=== PATIENT | male | born 1990 | race African-American/Black ===

== ENCOUNTER 2022-07-26 15:26 | Emergency (ER) | payer OTHER ==
[~2022-07-26] VITALS: Ht 180.3 cm; Wt 76.2 kg
[2022-07-26 15:49] VITALS: BP 140/90
--- NOTE | 2022-07-26 16:57 | NUR ---
Patient discharged to home in stable condition. Written and verbal after care instructions given. Patient verbalizes understanding of instruction.
== END 2022-07-26 16:58 | disposition home or self-care (01) ==
LOC: ER 15:46
DX: S02.2XXA Fracture of nasal bones, initial encounter for closed fracture (principal); Z60.2 Problems related to living alone; W50.0XXA Accidental hit or strike by another person, initial encounter; Y93.67 Activity, basketball; Y92.89 Other specified places as the place of occurrence of the external cause; Y99.8 Other external cause status
CPT/HCPCS: 70486-TC